=== PATIENT | female | born 1970 | race Caucasian/White ===

== ENCOUNTER 2020-07-01 15:25 | Inpatient (IN) ==
[2020-07-01] MEDS ORDERED: cefTRIAXone 2,000 MG in Water for inj. (sterile) 10 ML IVP ONE (15:36)
[2020-07-01] MEDS ORDERED: Azithromycin 500 MG in 0.9 % Sodium Chloride 250 ML IVPB ONE (15:36)
[2020-07-01] MEDS ORDERED: Ipratropium/Albuterol Neb 3 ML IH ONE (15:36)
[2020-07-01 16:22] LABS: Basophils # 0.1 K/mcL (0.0-0.2); Basophils % 0.8 %; Eosinophils # 0.4 K/mcL (0.0-0.6); Eosinophils % 2.9 %; Hematocrit 51.9 % (35.3-44.9); Hemoglobin 17.1 g/dL (11.5-15.4); Immature Granulocytes % 0.6 % (0-4); Lymphocytes # 2.8 K/mcL (0.6-4.6); Lymphocytes % 22.9 %; Mean Corpuscular HGB Conc 32.9 g/dL (31.6-35.5); Mean Corpuscular Hemoglobin 31.7 pg (28.0-33.3); Mean Corpuscular Volume 96.1 fL (83.0-100.0); Mean Platelet Volume 10.3 fL (9.4-12.4); Monocytes # 0.9 K/mcL (0.0-1.3); Monocytes % 7.3 %; Neutrophils # 7.9 K/mcL (1.6-8.9); Platelet Count 235 K/mcL (140-400); Red Cell Distribution Width 14.3 % (11.5-14.5); Segmented Neutrophils % 65.5 %; White Blood Count 12.1 K/mcL (4.3-11.1)
[2020-07-01 16:31] LABS: Prothrombin Time 11.5 Seconds (9.4-12.1)
[2020-07-01 16:42] LABS: Alanine Aminotransferase 44 Units/L (7-52); Albumin 4.3 g/dL (3.5-5.7); Albumin/Globulin Ratio 1.5 (1.1-2.2); Alkaline Phosphatase 148 Units/L (34-104); Aspartate Amino Transferase 29 Units/L (13-39); BUN/Creatinine Ratio 12 (6-26); Bilirubin,Indirect 0.5 mg/dL (0.0-1.0); Bilirubin,Total 0.5 mg/dL (0.3-1.0); Blood Urea Nitrogen 7 mg/dL (6-20); Calcium 9.6 mg/dL (8.6-10.3); Carbon Dioxide 35 mEq/L (23-29); Chloride 94 mEq/L (98-107); Globulin 2.9 g/dL (2.4-3.5); Glucose 274 mg/dL (70-105); Osmolality,Calculated 288 (280-300); Potassium 3.9 mEq/L (3.5-5.1); Sodium 135 mEq/L (136-145); Total Protein 7.2 g/dL (6.4-8.9); eGFR For African Americans > 60 (> 60); eGFR For Non-African Americans > 60 (> 60)
[2020-07-01 16:43] LABS: Troponin I < 0.03 ng/mL (< 0.04)
[2020-07-01 16:54] LABS: Bilirubin,Urine Negative (Negative); Blood,Urine Negative (Negative); Clarity,Urine Clear (Clear); Color,Urine Yellow (Yellow); Glucose,Urine (UA) >=1000 mg/dL (Normal); Ketones,Urine Negative (Negative); Leukocyte Esterase,Urine Negative (Negative); Nitrite,Urine Negative (Negative); Protein,Urine Negative (Neg-Trace); Specific Gravity,Urine 1.015 (1.010-1.025); Urobilinogen,Urine Normal (Normal)
[2020-07-01 17:07] LABS: Budding Yeast,Urine Few per hpf (None Seen); RBC,Urine 0-3 per hpf (0-3); Squamous Epithelial Cell,Urine Few per hpf (None-Few); WBC,Urine 0-3 per hpf (0-3)
[2020-07-01] MEDS ORDERED: Naloxone 0.4 MG/ML INJ IVP PRN (17:13)
[2020-07-01] MEDS ORDERED: Ondansetron ODT 4 MG TAB.RAPDIS SL PRN (17:13)
[2020-07-01] MEDS ORDERED: Ipratropium/Albuterol Neb 3 ML IH PRN (17:15)
[2020-07-01] MEDS ORDERED: *HR* Dextrose 50 % in Water (Vial) 50 ML VIAL IVP PRN (17:19)
[2020-07-01] MEDS ORDERED: D5% in Water 1,000 ML IVC PRN (17:19)
[2020-07-01] MEDS ORDERED: Dextrose Gel 15 GM/37.5 ML TUBE PO PRN ×2 (17:19)
[2020-07-01] MEDS: Nicotine 21 MG PATCH.TD24 TD SCH (19:01)
[2020-07-01] MEDS: Insulin LISPRO 300 UNITS/3 ML VIAL SUBQ SCH (19:02)
[2020-07-01] MEDS: Budesonide/Formoterol 160/4.5 1 PUFF INH IH SCH (22:11)
[2020-07-01] MEDS: Ziprasidone 20 MG CAPSULE PO SCH (23:03)
[2020-07-01] MEDS: Pregabalin 75 MG CAPSULE PO SCH (23:03)
[2020-07-01] MEDS: clonazePAM 0.5 MG TABLET PO SCH (23:09)
[2020-07-02] MEDS: *HR* Enoxaparin 40 MG/0.4 ML SYRINGE SQ SCH (05:52)
[2020-07-02 06:46] LABS: Hematocrit 50.2 % (35.3-44.9); Hemoglobin 16.3 g/dL (11.5-15.4); Mean Corpuscular HGB Conc 32.5 g/dL (31.6-35.5); Mean Corpuscular Hemoglobin 31.9 pg (28.0-33.3); Mean Corpuscular Volume 98.2 fL (83.0-100.0); Mean Platelet Volume 10.8 fL (9.4-12.4); Platelet Count 211 K/mcL (140-400); Red Blood Count 5.11 M/mcL (3.82-4.97); Red Cell Distribution Width 14.2 % (11.5-14.5); White Blood Count 11.6 K/mcL (4.3-11.1)
[2020-07-02] MEDS: Acetaminophen 325 MG TABLET PO PRN ×2 (06:51→15:26)
[2020-07-02 07:07] LABS: BUN/Creatinine Ratio 12 (6-26); Blood Urea Nitrogen 7 mg/dL (6-20); Calcium 8.9 mg/dL (8.6-10.3); Carbon Dioxide 35 mEq/L (23-29); Chloride 98 mEq/L (98-107); Glucose 263 mg/dL (70-105); Magnesium 1.9 mg/dL (1.6-2.6); Osmolality,Calculated 295 (280-300); Potassium 4.1 mEq/L (3.5-5.1); Sodium 139 mEq/L (136-145); eGFR For African Americans > 60 (> 60); eGFR For Non-African Americans > 60 (> 60)
[2020-07-02] MEDS: Nicotine 21 MG PATCH.TD24 TD SCH (08:30)
[2020-07-02] MEDS: Insulin LISPRO 300 UNITS/3 ML VIAL SUBQ SCH ×3 (08:30→16:54)
[2020-07-02] MEDS: Ziprasidone 20 MG CAPSULE PO SCH ×2 (08:31→20:44)
[2020-07-02] MEDS: Loratadine 10 MG TABLET PO SCH (08:31)
[2020-07-02] MEDS: clonazePAM 0.5 MG TABLET PO SCH ×3 (08:31→20:45)
[2020-07-02] MEDS: Pregabalin 75 MG CAPSULE PO SCH ×2 (08:31→20:44)
[2020-07-02] MEDS: Budesonide/Formoterol 160/4.5 1 PUFF INH IH SCH ×2 (09:34→20:03)
[2020-07-02] MEDS ORDERED: Ondansetron 4 MG/2 ML VIAL IVP PRN (10:35)
[2020-07-02] MEDS: Ipratropium/Albuterol Neb 3 ML IH SCH ×3 (11:12→20:02)
[2020-07-02] MEDS: MethylPREDNISolone 40 MG/ML VIAL IVP SCH ×2 (11:49→15:19)
[2020-07-02 13:26] LABS: Adenovirus Not Detected (Not Detect); Bordetella Pertussis Not Detected (Not Detect); Chlamydophila pneumoniae Not Detected (Not Detect); Coronavirus 229E Not Detected (Not Detect); Coronavirus HKU1 Not Detected (Not Detect); Coronavirus NL63 Not Detected (Not Detect); Coronavirus OC43 Not Detected (Not Detect); Human Metapneumovirus Not Detected (Not Detect); Human Rhinovirus/Enterovirus Not Detected (Not Detect); Influenza A Subtype 2009 H1 Not Detected (Not Detect); Influenza B Not Detected (Not Detect); Mycoplasma pneumoniae Not Detected (Not Detect); Parainfluenza Virus 1 Not Detected (Not Detect); Parainfluenza Virus 2 Not Detected (Not Detect); Parainfluenza Virus 3 Not Detected (Not Detect); Parainfluenza Virus 4 Not Detected (Not Detect); Respiratory Syncytial Virus Not Detected (Not Detect); SARS-CoV-2 Not Detected (Not Detect)
[2020-07-02 15:06] LABS: Estimated Average Glucose 324 mg/dl; Hemoglobin A1C 12.9 %
[2020-07-02] MEDS: cefTRIAXone 2,000 MG in 0.9 % Sodium Chloride Mini Bag 100 ML IVPB SCH (15:19)
[2020-07-02] MEDS: Azithromycin 500 MG in 0.9 % Sodium Chloride 250 ML IVPB SCH (16:53)
[2020-07-03] MEDS: MethylPREDNISolone 40 MG/ML VIAL IVP SCH ×3 (00:10→21:05)
[2020-07-03] MEDS: Ipratropium/Albuterol Neb 3 ML IH SCH ×6 (00:22→20:20)
[2020-07-03] MEDS: *HR* Enoxaparin 40 MG/0.4 ML SYRINGE SQ SCH (07:08)
[2020-07-03 07:54] LABS: Basophils % 0.2 %; Hematocrit 49.4 % (35.3-44.9); Hemoglobin 16.1 g/dL (11.5-15.4); Immature Granulocytes % 0.8 % (0-4); Mean Corpuscular HGB Conc 32.6 g/dL (31.6-35.5); Mean Corpuscular Hemoglobin 31.4 pg (28.0-33.3); Mean Corpuscular Volume 96.5 fL (83.0-100.0); Mean Platelet Volume 10.8 fL (9.4-12.4); Monocytes # 0.3 K/mcL (0.0-1.3); Monocytes % 1.6 %; Neutrophils # 15.1 K/mcL (1.6-8.9); Platelet Count 217 K/mcL (140-400); Red Blood Count 5.12 M/mcL (3.82-4.97); Red Cell Distribution Width 13.5 % (11.5-14.5); Segmented Neutrophils % 89.4 %; White Blood Count 16.9 K/mcL (4.3-11.1)
[2020-07-03 08:04] LABS: BUN/Creatinine Ratio 23 (6-26); Blood Urea Nitrogen 13 mg/dL (6-20); Calcium 9.1 mg/dL (8.6-10.3); Carbon Dioxide 30 mEq/L (23-29); Chloride 96 mEq/L (98-107); Glucose 407 mg/dL (70-105); Osmolality,Calculated 295 (280-300); Potassium 4.2 mEq/L (3.5-5.1); Sodium 134 mEq/L (136-145); eGFR For African Americans > 60 (> 60); eGFR For Non-African Americans > 60 (> 60)
[2020-07-03 08:06] LABS: Lymphocytes # 1.4 K/mcL (0.6-4.6)
[2020-07-03] MEDS: Budesonide/Formoterol 160/4.5 1 PUFF INH IH SCH ×2 (08:08→20:20)
[2020-07-03] MEDS: Loratadine 10 MG TABLET PO SCH (08:12)
[2020-07-03] MEDS: Insulin LISPRO 300 UNITS/3 ML VIAL SUBQ SCH ×3 (08:12→16:38)
[2020-07-03] MEDS: Ziprasidone 20 MG CAPSULE PO SCH ×2 (08:12→21:05)
[2020-07-03] MEDS: clonazePAM 0.5 MG TABLET PO SCH ×3 (08:13→21:05)
[2020-07-03] MEDS: Nicotine 21 MG PATCH.TD24 TD SCH (08:13)
[2020-07-03] MEDS: Pregabalin 75 MG CAPSULE PO SCH ×2 (08:13→21:05)
[2020-07-03] MEDS ORDERED: Fluconazole 100 MG TABLET PO ONE (14:00)
[2020-07-03] MEDS: cefTRIAXone 2,000 MG in 0.9 % Sodium Chloride Mini Bag 100 ML IVPB SCH ×2 (14:48→16:07)
[2020-07-03] MEDS: Azithromycin 500 MG in 0.9 % Sodium Chloride 250 ML IVPB SCH (16:37)
[2020-07-03] MEDS ORDERED: Insulin LISPRO 300 UNITS/3 ML VIAL SUBQ SCH (21:00)
[2020-07-03] MEDS: Insulin DETEMIR 100 UNIT/ML X5UNITS SUBQ SCH (21:06)
[2020-07-03] MEDS: Acetaminophen 325 MG TABLET PO PRN (23:04)
[2020-07-04] MEDS: Ipratropium/Albuterol Neb 3 ML IH SCH ×3 (00:32→07:58)
[2020-07-04 05:53] LABS: Basophils % 0.2 %; Hematocrit 45.1 % (35.3-44.9); Hemoglobin 14.7 g/dL (11.5-15.4); Immature Granulocytes % 0.7 % (0-4); Lymphocytes # 1.3 K/mcL (0.6-4.6); Mean Corpuscular HGB Conc 32.6 g/dL (31.6-35.5); Mean Corpuscular Hemoglobin 31.5 pg (28.0-33.3); Mean Corpuscular Volume 96.6 fL (83.0-100.0); Mean Platelet Volume 11.3 fL (9.4-12.4); Monocytes # 0.6 K/mcL (0.0-1.3); Monocytes % 3.8 %; Neutrophils # 14.6 K/mcL (1.6-8.9); Platelet Count 216 K/mcL (140-400); Red Blood Count 4.67 M/mcL (3.82-4.97); Red Cell Distribution Width 13.9 % (11.5-14.5); Segmented Neutrophils % 87.3 %; White Blood Count 16.7 K/mcL (4.3-11.1)
[2020-07-04] MEDS: *HR* Enoxaparin 40 MG/0.4 ML SYRINGE SQ SCH (06:01)
[2020-07-04] MEDS: Acetaminophen 325 MG TABLET PO PRN (06:01)
[2020-07-04 06:17] LABS: BUN/Creatinine Ratio 29 (6-26); Blood Urea Nitrogen 18 mg/dL (6-20); Calcium 9.3 mg/dL (8.6-10.3); Carbon Dioxide 30 mEq/L (23-29); Chloride 94 mEq/L (98-107); Glucose 474 mg/dL (70-105); Osmolality,Calculated 301 (280-300); Potassium 4.1 mEq/L (3.5-5.1); Sodium 134 mEq/L (136-145); eGFR For African Americans > 60 (> 60); eGFR For Non-African Americans > 60 (> 60)
[2020-07-04] MEDS: Ziprasidone 20 MG CAPSULE PO SCH (07:57)
[2020-07-04] MEDS: Pregabalin 75 MG CAPSULE PO SCH (07:57)
[2020-07-04] MEDS: Nicotine 21 MG PATCH.TD24 TD SCH (07:57)
[2020-07-04] MEDS: clonazePAM 0.5 MG TABLET PO SCH (07:57)
[2020-07-04] MEDS: Insulin LISPRO 300 UNITS/3 ML VIAL SUBQ SCH ×2 (07:58→12:19)
[2020-07-04] MEDS: MethylPREDNISolone 40 MG/ML VIAL IVP SCH (07:58)
[2020-07-04] MEDS: Loratadine 10 MG TABLET PO SCH (07:58)
[2020-07-04] MEDS: Insulin DETEMIR 100 UNIT/ML X5UNITS SUBQ SCH (09:01)
[2020-07-04] MEDS ORDERED: *HR* Metformin 500 MG TABLET PO SCH (09:33)
[2020-07-04] MEDS: Budesonide/Formoterol 160/4.5 1 PUFF INH IH SCH (09:50)
[2020-07-04 11:46] VITALS: BP 104/63
[2020-07-04] MEDS ORDERED: Fluconazole 100 MG TABLET PO ONE (12:07)
== END 2020-07-04 12:40 | disposition home health service (06) | DRG 133 ==
LOC: INPPIK 15:25 → EMEROOPIK 15:25 → INPPIK 17:59
PROVIDERS: ADMIT Family Medicine; ATTEND Family Medicine